=== PATIENT | female | born 1945 | race Caucasian/White ===

== ENCOUNTER 2016-09-02 13:28 | Day surgery (SDC) | payer MEDICARE, BC ==
--- NOTE | ~2016-09-02 | EGD ---
EGD REPORT [facility] [address] [place] [id number] NAME: DANNY JURADO : [birth year] STATUS : REG [facility]#: [id number] AGE: 71 ADM/REG DATE : 09/02/16 MR#: [id number] REPORT SERV DATE: 09/02/16 DICTATED BY: TRESSA TRONCOSO DATE: 09/02/16 REPORT STATUS : Draft TRANSCRIBED BY: [facility] DATE: 09/02/16 [facility] Patient Name: Danny Jurado Date of : 1945 Attending MD: CHANDRIKA TRONCOSO MD Procedure Date No Time: 09/02/2016 Procedure: Colonoscopy Indications: Screening in patient at increased risk: Colorectal cancer in mother 60 or older Referring MD: SYLVIE GRACE II Medicines: See the Anesthesia note for documentation of the administered medications Complications: No immediate complications. Estimated blood loss: None. Procedure: Pre-Anesthesia Assessment: - ASA Grade Assessment: III - A patient with severe systemic disease. - Prior to the procedure, a History and Physical was performed, and patient medications and allergies were reviewed. The patient's tolerance of previous anesthesia was also reviewed. The risks and benefits of the procedure and the sedation options and risks were discussed with the patient. All questions were answered, and informed consent was obtained. Prior Anticoagulants: The patient has taken anticoagulant medication, last dose was 3 days prior to procedure. After reviewing the risks and benefits, the patient was deemed in satisfactory condition to undergo the procedure. After I obtained informed consent, the scope was passed under direct vision. Throughout the procedure, the patient's blood pressure, pulse, and oxygen saturations were monitored continuously. The PCF [id number] was introduced through the anus and advanced to the cecum, identified by appendiceal orifice and ileocecal valve. The ileocecal valve, appendiceal orifice and rectum were photographed. The entire colon was examined. The colonoscopy was performed without difficulty. The patient tolerated the procedure well. The quality of the bowel preparation was adequate. Findings: The perianal and digital rectal examinations were normal. The colon (entire examined portion) was significantly tortuous. A sessile polyp was found in the cecum. The polyp was 7 mm in size. The polyp was removed with a jumbo cold forceps. Resection and retrieval were complete. EGD REPORT [address] [address] NAME: DANNY JURADO : [birth year] STATUS : REG [facility]#: [id number] AGE: 71 ADM/REG DATE : 09/02/16 MR#: [id number] REPORT SERV DATE: 09/02/16 DICTATED BY: TRESSA TRONCOSO DATE: 09/02/16 REPORT STATUS : Draft TRANSCRIBED BY: [employer] DATE: 09/02/16 Non-bleeding internal hemorrhoids were found during retroflexion and were Grade I (internal hemorrhoids that do not prolapse). No other significant abnormalities were identified in a careful examination of the remainder of the colon. Impression: - Tortuous colon. - One 7 mm polyp in the cecum. Resected and retrieved. - Non-bleeding internal hemorrhoids. Recommendation: - Patient has a contact number available for emergencies. The signs and symptoms of potential delayed complications were discussed with the patient. Return to normal activities tomorrow. Written discharge instructions were provided to the patient. - Regular diet. - Discharge patient to home. - Continue present medications. - Await pathology results. - Repeat colonoscopy is not recommended for surveillance. 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 All rights reserved. The codes documented in this report are preliminary and upon seater grinder review may be revised to meet current compliance requirements. CHANDRIKA TRONCOSO MD 09/02/2016 4:53 PM This report has been signed electronically. Number of Addenda: 0 Note Initiated On: 09/02/2016 4:16 PM EGD REPORT [facility] [address] [id number] NAME: DANNY JURADO : 41 STATUS : REG [facility] [place] PAT#: [id number] AGE: 71 ADM/REG DATE : 09/02/16 MR#: [id number] REPORT SERV DATE: 09/02/16 DICTATED BY: TRESSA TRONCOSO DATE: 09/02/16 REPORT STATUS : Draft TRANSCRIBED BY: [facility] [facility] DATE: 09/02/16 Scope Withdrawal Time 0 hours 8 minutes 4 seconds [address] [id number]
[~2016-09-02 13:28] MED LIST: 8 HOUR650 MG PO; ASA5GR PO; ASAB PO; BENEFIBER; BETAP120 PO; CELEBREX2 PO; CHOLEST OFF PO; CYANO1000T PO; ELIQUIS 2.5 MG2.5 MG PO; FISH-EPA1000 MG PO; HYDROCHLOROT12.5 MG PO; LIPITOR40 PO; LUNESTA1 MG PO; MAXIMUM D3 PO; MIRALAX POWDER1 PKT PO; MIRALAXPKT PO; NITROSTAT0.4 MG SL; NORV5 PO; PLAVIX PO; RED YEAS1 OR; VITAMIN B-121000 MC1 SL; VITD PO; VOLTAREN1 % TOP; WELLSR150 PO; WELLXL300 PO
== END 2016-09-02 23:59 | disposition home or self-care (01) ==
LOC: DMU 13:28
PROVIDERS: Internal Medicine Gastroenterology
PROC: 0DBH8ZZ Excision of Cecum, Via Natural or Artificial Opening Endoscopic (ICD-10-PCS; principal; 2016-09-02 15:30)
DX: Z12.11 Encounter for screening for malignant neoplasm of colon (principal); D12.0 Benign neoplasm of cecum; Q43.8 Other specified congenital malformations of intestine; K64.0 First degree hemorrhoids; Z80.0 Family history of malignant neoplasm of digestive organs; K58.9 Irritable bowel syndrome, unspecified; Z95.0 Presence of cardiac pacemaker; I48.0 Paroxysmal atrial fibrillation
CPT/HCPCS: 88305